=== PATIENT | male | born 1950 | race African-American/Black ===

== ENCOUNTER 2018-04-22 13:04 | Inpatient (IN) | payer BC ==
[2018-04-22] MEDS ORDERED: diphenhydrAMINE 50 MG/ML VIAL ONE (13:51)
[2018-04-22] MEDS ORDERED: Metoclopramide HCl 10 MG/2 ML VIAL ONE (13:51)
[2018-04-22] MEDS ORDERED: Ondansetron PF 4 MG/2 ML Vial IVP PRN (17:28)
[2018-04-22] MEDS ORDERED: Milk Of Magnesia 30 ML UDCUP PO PRN (17:28)
[2018-04-22] MEDS ORDERED: Mag-Al 1200 mg/1200 mg/30 ML UDCUP PO PRN (17:28)
[2018-04-22] MEDS ORDERED: Acetaminophen/Codeine 30-300mg Tablet PO PRN (17:34)
[2018-04-22] MEDS: Acetaminophen 325 MG TAB PO PRN (21:18)
[2018-04-22] MEDS: Sodium Chloride 0.9% 1,000 ML IV SCH (21:18)
--- NOTE | 2018-04-23 01:31 | HP ---
HISTORY OF PRESENT ILLNESS: Mr. Riley is a 67-year-old male who reports to our emergency department due to a change in his CT scan. The patient was having a followup CT of the head for a followup with our neurosurgeon tomorrow. Mr. Riley is known to our Neurosurgery group. He was last seen approximately two weeks ago at [facility] for a chronic subdural hematoma, which at that time the patient and his refused surgery. The patient was getting his followup CT and due to the size, he was sent over to the [facility]. We are seeing him in the ED. The patient is a poor historian, does not recall if he fell. The patient is moving all four extremities, the left side is much more weak due to a previous stroke. Currently, the patient does not have any complaints and he was sleeping; however, fold and wrapped up in many blankets. REVIEW OF SYSTEMS: Review of systems is negative other than stated in the above HPI. PAST MEDICAL HISTORY: Anemia, history of aspiration pneumonia, bilateral hydronephrosis, chronic systolic congestive heart failure, GERD, hyperlipidemia, hypertension, seasonal allergies, seizures following cerebrovascular accident and stroke. PAST SURGICAL HISTORY: Knee arthroscopy. SOCIAL HISTORY: The patient is a former smoker. He lives at home with his . He drinks daily. Since his last hospital stay at [facility], he has been in a rehab facility. MEDICATIONS: 1. Aspirin. 2. Potassium. 3. Atorvastatin. 4. Carvedilol. 5. Levetiracetam. 6. Terazosin. 7. Fluoxetine. PHYSICAL EXAMINATION: CONSTITUTIONAL: The patient is healthy. He is afebrile, normotensive. He does not appear to be distressed. He is arousable and moving all four extremities. HEENT: Head is normocephalic, atraumatic. Pupils are equal, round, reactive to light. Extraocular movements are intact. Hearing is intact. Moist mucous membranes. RESPIRATORY: Normal work of breathing on room air. Symmetrical chest rise. CARDIO: Regular rate and rhythm. EXTREMITIES: The patient is moving all four extremities. Right side is significantly stronger than the left. The left has been rehabbed following stroke. The right side, 5/5 strength and tuna purse seiner strength in deltoid, biceps, and triceps. Dorsiflexion, plantar flexion on the right. The patient has very little motion in left lower extremity, but 4/5 strength in the left upper extremity with tuna purse seiner strength and flexion, extension of the elbow. NEUROLOGIC: The patient is awake and alert once aroused. He does want to rest and closes his eyes frequently. GCS of 15. He obeys commands. Cranial nerves 2 through 12 are intact. Mild left-sided facial droop. Speech is spontaneous, slurred, but comprehensible. IMAGING: CT of the brain, there is a large bilateral subdural hematoma with significant mass effect on the underlying cerebral hemisphere, the largest is on the right, mixed density consisting an acute on chronic hemorrhage. There is [id number]-pf-[id number] midline shift with approximately 8 mm more chronic appearing left subdural hematoma measuring . ASSESSMENT AND PLAN: Mr. Riley is a 67-year-old male with a chronic subdural, worse on the right hygroma, on the left is chronic as well. We have offered janeth hole and washout on subdural. We will admit him to the hospital and make him n.p.o. after midnight. We will take him to surgery in the morning. Job ID: [id number]
--- NOTE | 2018-04-23 07:57 | PRG ---
DATE OF SERVICE: 04/23/2018 NEUROSURGERY PROGRESS NOTE I saw Jose G Riley in the Stroke Unit this morning. He is admitted yesterday with increase in size of the subdural hemorrhage. We met Mr. Riley at the [facility] in March, when he was admitted there with the same subdural hemorrhage. It has increased in size in the interval. He is more off balance. He has less energy and he has more headache than he had before. He has not had any seizure activity, but he takes antiepileptic medication at home. Examination this morning, Mr. Riley is awake. He answers questions quite slowly. He is moving well. He has some residual hemiparesis from the stroke, but he does not feel steady enough to get out of bed and show me how he walks. The right-sided subdural hematoma is larger than it was at the [facility]. There is a left-sided fluid collection as well, hygroma versus hematoma. I took a long time discussing the situation with Jose G and his at the previous hospitalization, they were rather sure that they did not want surgical intervention even though it was recommended. They now returned with worsening neurological function and an increase in the size of subdural hemorrhage. This is expected. I discussed janeth hole evacuation of subdural hemorrhage. I discussed the indications, risks, benefits, alternatives to surgery as well as the expected results. The risks discussed included, but were not limited to, bleeding, infection, damage to the brain, seizure, stroke, paralysis, increased hemorrhage , need for future surgery, and cardiopulmonary complications of anesthesia including . Mr. Riley and his understand the risks and want to proceed today. We will make arrangements for that to happen. Job ID: [id number] [facility]
[2018-04-23] MEDS: Pantoprazole 40 MG VIAL IVP SCH (09:01)
[2018-04-23] MEDS: Acetaminophen/Codeine 30-300mg Tablet PO PRN (09:01)
[2018-04-23 12:13] LABS: Anion Gap 12 mmol/L (10-20); BUN (Urea Nitrogen) 12 mg/dL (8.4-25.7); Calc. Creatinine Clearance 86 mL/min (70-130); Carbon Dioxide 22 mmol/L (23-31); Chloride 104 mmol/L (98-107); Estimated GFR-MDRD Greater than 90; Glucose 99 mg/dL (80-115); Potassium 4.2 mmol/L (3.5-5.1); Sodium 134 mmol/L (136-145)
[2018-04-23 12:16] LABS: #Basophils 0.1 thou/uL (0.0-0.2); #Eosinphils 0.1 thou/uL (0.0-0.7); #Lymphocytes 1.9 thou/uL (1.20-3.40); #Neutrophils 5.9 thou/uL (1.40-6.50); %Basophils 0.8 % (0.0-1.0); %Monocytes 10.9 % (0.0-10.0); %Neutrophils 66.3 % (42.0-75.0); Hemoglobin 11.3 g/dL (14.0-18.0); Mean Corpuscular Hemoglobin 36.4 pg (27.0-31.0); Mean Platelet Volume 6.6 fL (7.4-10.4); Platelet Count 415 thou/uL (130-400); RBC Distribution Width 10.6 % (11.5-14.5); White Blood Cell (WBC) Count 8.8 thou/uL (4.8-10.8)
[2018-04-23] MEDS ORDERED: CEFAZOLIN 2 GM/50 ML BAG ONE (12:17)
[2018-04-23] MEDS ORDERED: Lidocaine 0.5%/Epinephrine 1:200,000 50 ml Vial ONE (12:22)
[2018-04-23] MEDS ORDERED: Thrombin 5000 UNITS/5 ML VIAL ONE (12:23)
[2018-04-23] MEDS ORDERED: Sodium Chloride 0.9% 0 ML ONE (12:23)
[2018-04-23] MEDS ORDERED: Bacitracin Zinc Ointment 30 gm TUBE ONE (12:23)
[2018-04-23 12:43] LABS: MDiff Complete? YES; Macrocytosis SLIGHT = 6-15 cells (100X) (0-5/hpf); Platelet Morphology Comment Appears Increased; Polychromasia SLIGHT = 2-3 cells (100X) (0-2/hpf)
[2018-04-23] MEDS ORDERED: Fentanyl 250 MCG/5 ML VIAL ONE (13:00)
[2018-04-23] MEDS ORDERED: Phenylephrine HCL 10 MG/ML VIAL ONE (13:54)
[2018-04-23] MEDS ORDERED: Sodium Chloride 0.9% 10 ML ONE ×3 (14:58→14:59)
[2018-04-23] MEDS ORDERED: diphenhydrAMINE 50 MG/ML VIAL IVP PRN (15:39)
[2018-04-23] MEDS ORDERED: Morphine 2 MG/ML SYRINGE SLOW IVP PRN (15:39)
[2018-04-23] MEDS ORDERED: Promethazine 25 MG TAB PO PRN (15:39)
[2018-04-23] MEDS ORDERED: Mag-Al 1200 mg/1200 mg/30 ML UDCUP PO PRN (15:39)
[2018-04-23] MEDS ORDERED: Labetalol HCl 100 MG/20 ML VIAL SLOW IVP PRN ×2 (15:39→15:58)
[2018-04-23] MEDS ORDERED: hydrALAZINE 20 MG/ML VIAL SLOW IVP PRN (15:39)
[2018-04-23] MEDS ORDERED: Morphine 4 MG/ML VIAL SLOW IVP PRN (15:39)
[2018-04-23] MEDS ORDERED: Docusate 100 MG CAP PO PRN (15:39)
[2018-04-23] MEDS ORDERED: Promethazine HCl 25 MG/ML VIAL IM PRN (15:39)
[2018-04-23] MEDS ORDERED: CEFAZOLIN/Water 2 GM/20 ML SYRINGE SLOW IVP SCH (15:45)
--- NOTE | 2018-04-23 17:09 | EKG ---
Test Reason : PREOP Blood Pressure : / mmHG Vent. Rate : 076 BPM Atrial Rate : 076 BPM P-R Int : 130 ms QRS Dur : 076 ms QT Int : 356 ms P-R-T Axes : 057 -21 037 degrees QTc Int : 400 ms Normal sinus rhythm Normal ECG Confirmed by VICTOR M PIERSON, DR. Mahoney ([id number]) on 04/23/2018 5:09:12 PM Referred By: NICHOLE Confirmed By:DR. Maru DOW MD
[2018-04-23] MEDS: Sodium Chloride 0.9% 1,000 ML IV SCH ×2 (17:22→23:12)
[2018-04-23] MEDS ORDERED: Lidocaine 1% PF 5 ML VIAL ONE (17:26)
[2018-04-23] MEDS ORDERED: Glycopyrrolate 0.2 MG/ML 5 ML SYRINGE ONE (17:26)
[2018-04-23] MEDS ORDERED: ePHEDrine 50 MG/ML VIAL ONE (17:26)
[2018-04-23] MEDS ORDERED: PHENYLEPHRINE-NS 100 MCG/ML 10 ML SYRINGE ONE (17:26)
[2018-04-23] MEDS ORDERED: PROPOFOL 200 MG/20 ML VIAL ONE (17:26)
[2018-04-23] MEDS ORDERED: Rocuronium Bromide 10 MG/ML (10ML VIAL) ONE (17:26)
[2018-04-23] MEDS: hydrALAZINE 20 MG/ML VIAL SLOW IVP PRN ×3 (17:30→18:41)
--- NOTE | 2018-04-23 17:40 | OP ---
DATE OF PROCEDURE: 04/23/2018 [employer]ENT: Jaclyn Schneider PA-C. PREOPERATIVE INDICATION: Prevent neurological deterioration. PREOPERATIVE DIAGNOSIS: Chronic subdural hematomas with mass effect and midline shift, larger on the right, smaller on the left. POSTOPERATIVE DIAGNOSIS: Chronic subdural hematomas with mass effect and midline shift, larger on the right, smaller on the left. PROCEDURE PERFORMED: Bilateral janeth hole evacuation of subdural hematoma and placement of subdural drain. PREOPERATIVE MEDICATION: Ancef 2 g IV. DRAINS NUMBER: 2. DRAIN TYPE: Subdural. DESCRIPTION OF PROCEDURE: The patient was brought to the operating room. General endotracheal anesthesia was induced. The head was positioned in a gel-filled donut shaped headrest and hair was removed bilaterally over the scalp. We planned our parietal and frontal incisions on both sides and infused local anesthetic under the planned incisions. The scalp was sterilely prepped and draped. We opened first on the right side, opening the frontal and parietal incisions. We placed self-retaining retractors. With the high-speed drill and a perforating bit, we placed janeth holes of the frontal bone and parietal bone and waxed the edges of the janeth holes. We coagulated the dura. We opened the parietal and the frontal dura and thick chronic subdural hematoma easily evacuated through the posterior janeth hole. We irrigated copiously with bacitracin irrigation until all the irrigant ran clear. We brought a 10-Ukrainian red rubber catheter into the field. We cut extra sideholes in it and placed it through the posterior janeth hole into the subdural space. It was tunneled inferiorly through a separate stab incision and distal end connected to a lumbar drain bag. We placed Gelfoam with the posterior janeth hole and closed the parietal incision. We then filled the subdural space with irrigant by tilting the head to the left. There is much irrigant ran into the subdural space as possible and then we placed a pledget of Gelfoam and closed that incision as well. We placed a pursestring suture around the exit point of the drain. We used leona to close the incisions and turned our attention to the left subdural. In a similar fashion, we opened the frontal and parietal incisions. Self-retaining retractors were placed and then we created janeth holes. We waxed the bone edges and then coagulated the dura. We opened the dura in a cruciate fashion, coagulating it back and on the left side, the evacuating fluid was mostly blood with yellow tinge indicating some remote hemorrhage. A small amount of red colored fluid emanated, but most of it was straw in color. Another red rubber catheter was brought into the field and we cut extra sideholes in it. We placed it in subdural space through the parietal janeth hole. We closed that incision and then filled the remainder of the subdural space up to the frontal janeth hole by tilting the head to the right. We closed that janeth hole as well with a pledget of Gelfoam over the opening. We used leona to close the skin. The exit point of the red rubber catheter was previously tunneled under the skin through a separate stab incision and that exit point reinforced with a pursestring suture. The distal end was connected to a lumbar drain bag. Irrigant was already collected in both bags before sterile dressing was applied. The dressing was applied and the patient was moved to transfer cart. This was a clean case, no contamination. Job ID: [id number]
[2018-04-23] MEDS: Famotidine/PF 20 mg/2ml Vial SLOW IVP SCH (20:52)
[2018-04-23] MEDS: CEFAZOLIN 2 GM/50 ML-DEXTROSE 2 GM in Premix Bag 1 BAG IVPB SCH (20:52)
[2018-04-24] MEDS: CEFAZOLIN 2 GM/50 ML-DEXTROSE 2 GM in Premix Bag 1 BAG IVPB SCH ×3 (04:37→20:46)
--- NOTE | 2018-04-24 07:07 | PRG ---
DATE OF SERVICE: 04/24/2018 This is a Neurosurgery progress note. Mr. Riley is one day out from bilateral janeth hole evacuation of subdural hematoma. He has drains in place. He reports headache this morning, but no other new complaints. Maximum temperature recorded was 99.9 degrees Fahrenheit. Blood pressures have been under better control than they were in the operation with systolics in the 130s to 140s. This morning, Mr. Riley opens his eyes quickly, interacts, he answers questions and he moves all 4 extremities. I do not find any new focal deficits. The drain bags are in place and working well. CT examination of brain this morning shows good evacuation of the subdural hematomas with very little residual. There is pneumocephalus bilaterally, however. Plan for Mr. Riley today is to begin mobilization. We will leave drains in place on either side and allow him to sit and stand and move about today. We will get a repeat CT scan tomorrow. Hopefully, some of the pneumocephalus will begin receding and the drains continue to do their job in removing fluid from the subdural compartment. Job ID: [id number]
--- NOTE | 2018-04-24 08:23 | CT ---
PRELIMINARY REPORT/[facility]/EMERGENTY AFTER-HOURS PROCEDURE CT Head Without Contrast EXAM DATE/TIME: 04/24/2018 5:11 AM CLINICAL HISTORY: 67 years old, male; Pain; Headache; Post-traumatic; Prior surgery; Surgery date: Post-operative (0-2 days); Surgery type: 2 drains placed. ; Patient HX: Follow up sdh, 2 drains placed in surgery. TECHNIQUE: Axial computed tomography images of the head/brain without contrast. COMPARISON: No relevant prior studies available. FINDINGS: Brain: Moderate to large bilateral frontoparietal subdural collections, mixed attenuation on the righ t with some acute to subacute hemorrhage vs low to intermediate attenuation on the left. These measur e up to 19 mm in transverse dimension on the right and 14 on the left. Bilateral subdural drains noted with tips anteriorly. Moderate pneumocephalus. No acute stroke or parenchymal hemorrhage . Ventricles: Normal. No ventriculomegaly. Bones/joints: Bilateral janeth holes noted. Sinuses: Visualized sinuses are unremarkable. No acute sinusitis. Mastoid air cells: Visualized mastoid air cells are unremarkable. No mastoid effusion. Soft tissues: Scalp edema noted. IMPRESSION: Bilateral subdural collections post bilateral janeth holes and subdural drain placement. Pneumocephalus. No hydrocephalus or herniation. Prior not currently available. Thank you for allowing us to participate in the care of your patient. Dictated and Authenticated by: Dennis Beltran MD 04/24/2018 5:58 AM Central Time ([place] & [place]) CT HEAD NONCONTRAST: EMERGENT AFTER HOURS STUDY 04/24/2018 HISTORY: Follow up bilateral subdural hemorrhages. COMPARISON: 04/22/2018 IMPRESSION: 1. There have been interval post surgical changes, related to placement of bilateral bur holes in th e bifrontal and biparietal bones. There are subdural drainage catheters entering via the more off premise service representative iorly located bur holes, and there has been an interval decrease in bilateral subdural collections, a lthough the subdural collections do persist. There is evidence of pneumocephalus now present. Bilat eral subdural hemorrhages do persist with mixed density seen on the right. The greatest transverse d imension involving the right subdural collection is approximately 1.6 cm and and previously 2.7 cm wi th the greatest transverse dimension on the left of approximately 1.4 cm and previously 1.8 cm. 2. Interval decrease in mass effect on the cerebral hemispheres bilaterally, as well as resolution o f midline shift, although mild mass effect on each cerebral hemisphere does persist. 3. Chronic small vessel ischemic changes and cerebral volume loss. 4. Defect, right medial orbital wall, stable from prior study, which may be related to remote injury or be developmental. Findings are in agreement with preliminary report by [facility]. POS: [facility]
[2018-04-24] MEDS: Famotidine/PF 20 mg/2ml Vial SLOW IVP SCH ×2 (09:57→20:46)
[2018-04-24] MEDS: Pantoprazole 40 MG VIAL IVP SCH (09:57)
[2018-04-24] MEDS: Potassium Chloride 20 MEQ TAB PO SCH (09:57)
[2018-04-24] MEDS: FLUoxetine HCl 10 MG CAP PO SCH (11:22)
[2018-04-24] MEDS: Sodium Chloride 0.9% 1,000 ML IV SCH (13:44)
[2018-04-24] MEDS: Acetaminophen/Codeine 30-300mg Tablet PO PRN ×2 (16:17→22:02)
[2018-04-25] MEDS: Sodium Chloride 0.9% 1,000 ML IV SCH ×3 (03:09→17:43)
[2018-04-25] MEDS: CEFAZOLIN 2 GM/50 ML-DEXTROSE 2 GM in Premix Bag 1 BAG IVPB SCH ×3 (04:11→20:58)
[2018-04-25] MEDS: Acetaminophen/Codeine 30-300mg Tablet PO PRN ×4 (06:46→21:51)
[2018-04-25 08:10] LABS: #Eosinphils 0.1 thou/uL (0.0-0.7); #Lymphocytes 1.2 thou/uL (1.20-3.40); #Monocytes 1.2 thou/uL (0.11-0.59); #Neutrophils 6.1 thou/uL (1.40-6.50); %Basophils 0.4 % (0.0-1.0); %Eosinophils 0.7 % (0.0-10.0); %Lymphocytes 14.3 % (21.0-51.0); %Monocytes 14.3 % (0.0-10.0); %Neutrophils 70.3 % (42.0-75.0); Mean Corpuscular HGB CONC 33.2 g/dL (32.0-36.0); Mean Corpuscular Hemoglobin 35.8 pg (27.0-31.0); Platelet Count 361 thou/uL (130-400); RBC Distribution Width 10.6 % (11.5-14.5); Red Blood Cell (RBC) Count 3.08 mill/uL (4.70-6.10); White Blood Cell (WBC) Count 8.7 thou/uL (4.8-10.8)
[2018-04-25 08:20] LABS: Anion Gap 10 mmol/L (10-20); BUN (Urea Nitrogen) 10 mg/dL (8.4-25.7); Calc. Creatinine Clearance 181 mL/min (70-130); Calcium 9.7 mg/dL (7.8-10.44); Carbon Dioxide 25 mmol/L (23-31); Chloride 101 mmol/L (98-107); Estimated GFR-MDRD Greater than 90; Glucose 98 mg/dL (80-115); Potassium 3.6 mmol/L (3.5-5.1); Sodium 132 mmol/L (136-145)
[2018-04-25] MEDS: Potassium Chloride 20 MEQ TAB PO SCH (08:51)
[2018-04-25] MEDS: Famotidine/PF 20 mg/2ml Vial SLOW IVP SCH (08:51)
[2018-04-25] MEDS: Pantoprazole 40 MG VIAL IVP SCH (08:51)
--- NOTE | 2018-04-25 08:54 | PRG ---
DATE OF SERVICE: 04/25/2018 SUBJECTIVE: Mr. Riley is now status post bilateral frontal janeth hole evacuation of subdural hematoma. This morning, he is in the ICU, resting comfortably, sitting up, awake and interactive. He had a repeat CT examination, which shows fairly substantial degree of bilateral pneumocephalus with associated mass effect. Despite the findings on his CT scan, he appears to be asymptomatic with the exception of minor headache, which could this be a postoperative headache. He has two drains in place, both of which have had a significant output over the last 24 hours. My plan is to move him to the floor with the drains in place. We will slowly mobilize him with physical therapy. We will remove the drains once the output has diminished to a more substantial degree. Should he develop any significant symptoms as relates pneumocephalus, we can place him on high-flow oxygen. Otherwise, we will quickly move toward disposition planning as well. Job ID: [id number]
[2018-04-25] MEDS ORDERED: Potassium Chloride 20 MEQ TAB PO SCH ×2 (09:30)
[2018-04-25] MEDS ORDERED: Terazosin HCl 1 MG CAP PO SCH (09:30)
--- NOTE | 2018-04-25 09:47 | CON ---
DATE OF CONSULTATION: 04/25/2018 SERVICE: Pulmonary Medicine. REASON FOR CONSULT: ICU patient. HISTORY OF PRESENT ILLNESS: The patient is a 67-year-old male with past medical history significant for a recent presentation to [facility] for a chronic subdural hematoma. At that time, his refused surgery. As such, he presented for a routine followup CT scan in the outpatient setting. It showed evolution in the size of the subdural, and he was subsequently admitted to [facility] for evacuation of that clot. He has undergone bilateral janeth hole evacuation of subdural hematoma and placement of subdural drains. He is postop day #2 from that event. He has had no significant neurologic decline. He currently only has complaints of a headache. He is tolerating p.o. His weakness is improving a little bit. He denies any current fevers, chills, cough, sputum production, nausea, or vomiting. His appetite had been perked up quite yet. He was able to sit up on the side of the bed with physical therapy, but his core strength is extraordinarily weak, and he was not able to get out of bed into a chair. He does not have any respiratory issues and denies chest discomfort at this point. Otherwise, there has been no interval change to his condition. PAST MEDICAL HISTORY: 1. Chronic systolic heart failure. 2. Gastroesophageal reflux disease. 3. Dyslipidemia. 4. Hypertension. 5. History of seizure disorder. 6. History of CVA. 7. History of bilateral subdural hematomas, status post evacuation. 8. Seasonal allergies. 9. History of aspiration-related pneumonia. PAST SURGICAL HISTORY: 1. Knee arthroscopy. 2. Bilateral janeth hole and subdural drain placements. SOCIAL HISTORY: He has a history of smoking. He has greater than [id number] history of smoking. He drinks on a daily basis. Denies any street drugs. He has no exposure to chemicals, dust, asbestos, or tuberculosis. Up until recently, he was in [facility]. ALLERGIES: NO KNOWN DRUG ALLERGIES. MEDICATIONS: List of his inpatient medications was reviewed. No specific updates were made at this time. REVIEW OF SYSTEMS: General, head, ears, eyes, nose, throat, cardiovascular, respiratory, GI, , musculoskeletal, neurologic, and skin is negative except as mentioned in the HPI. PHYSICAL EXAMINATION: VITAL SIGNS: Afebrile, pulse 80, blood pressure 158/85, respirations 21, and saturation is 96% on room air. GENERAL: The patient is awake and alert, in no apparent distress. LUNGS: Decent air entry. There is no prolonged expiratory phase, wheezing, rhonchi, or crackles present. HEART: Normal rate. Regular. ABDOMEN: Soft, nontender, and nondistended. Bowel sounds are positive. MUSCULOSKELETAL: No cyanosis or clubbing. No pitting in the bilateral lower extremities. NEUROLOGIC: Grossly nonfocal. LABORATORY DATA: WBC 8.7, hemoglobin 11.0, platelets 361,000, and roughly stable. Neutrophil count is normal. Sodium is dropping to 132, potassium 3.6, and creatinine 0.64. IMAGING STUDIES: CT of the brain demonstrates postsurgical changes related to bilateral janeth hole and subdural drains in good position, evacuating previous hematoma. Pneumocephalus is now present, expect in the postop period. There was interval decrease in mass effect on the cerebral hemispheres bilaterally and resolution in the midline shift. ASSESSMENT: 1. Subdural hematoma, bilateral, status post bilateral janeth hole and subdural drain placements, postop day #2. 2. Benign prostatic hypertrophy. 3. History of aspiration pneumonia. DISCUSSION AND PLAN: We will look for signs of infection, which currently do not exist. Pulmonary will continue to follow along for the time being. I will replace the potassium and work on getting the Barry catheter out. I will resume the terazosin. From a purely Respiratory perspective, the patient is certainly stable for transition out of the ICU. 70 minutes have been devoted to this patient in various activities. I personally reviewed all imaging studies and laboratory data noted within this document. For fifty percent of this time, I was interacting with the patient at the bedside or coordinating care with the care team. For the remainder of the time I was immediately available to the patient in the hospital unit. Job ID: [id number] [facility]
[2018-04-25] MEDS: FLUoxetine HCl 10 MG CAP PO SCH (09:53)
--- NOTE | 2018-04-25 09:56 | CT ---
PRELIMINARY REPORT/[facility]/EMERGENCY AFTER HOURS PROCEDURE: EXAM: CT Head Without Contrast EXAM DATE/TIME: 04/25/2018 4:45 AM CLINICAL HISTORY: 67 years old, male; Condition or disease; Other: Sdh; Patient HX: F/u sdh, janeth howls TECHNIQUE: Axial computed tomography images of the head/brain without contrast. COMPARISON: CT Brain WO Con 04/24/2018 5:11 AM FINDINGS: Brain: Moderate to large bilateral frontoparietal subdural collections, mixed attenuation on the righ t with some acute to subacute hemorrhage vs low to intermediate attenuation on the left. Overall size without significant change although there has been slight decrease / breakdown of the hemorrhagic co mponent on the right. Stable mass effect upon underlying brain parenchya bilaterally. Bilateral subdu ral drains noted with tips anteriorly. Moderate pneumocephalus, slightly increased. No acute stroke o r parenchymal hemorrhage. Ventricles: No ventriculomegaly. Bones/joints: Bilateral janeth holes noted. Sinuses: Visualized sinuses are unremarkable. No acute sinusitis. Mastoid air cells: Visualized mastoid air cells are unremarkable. No mastoid effusion. Soft tissues: Scalp edema noted. IMPRESSION: 1. Bilateral subdural collections post bilateral janeth holes and subdural drain placement. Overall siz e without significant change although there has been slight decrease / breakdown of the hemorrhagic c omponent on the right. 2. Moderate pneumocephalus, slightly increased. 3. No hydrocephalus or herniation. Thank you for allowing us to participate in the care of your patient. Dictated and Authenticated by: Dennis Beltran MD 04/25/2018 5:31 AM Central Time ([place] & [place]) FINAL REPORT EMERGENCY AFTER HOURS CT BRAIN PERFORMED WITHOUT CONTRAST ENHANCEMENT: Date: 04/25/18 HISTORY: Follow-up subdural hematoma. COMPARISON: Prior day's study. FINDINGS: The fairly extensive pneumocephalus changes are fairly similar to the previous examination. The right -sided mixed density subdural collection on the right is fairly similar to the previous exam and the smaller more low attenuation subdural collection on the left is also essentially unchanged. Bilateral subdural drains are in place. IMPRESSION: Fairly stable overall examination. Moderate pneumocephalus changes and the subdural collections all a re stable. This report is in agreement with the preliminary report issued by [facility]. POS: [facility]
[2018-04-25] MEDS: traMADol HCl 50 MG TAB PO PRN ×2 (10:11→15:48)
--- NOTE | 2018-04-25 11:26 | PRG ---
DATE OF SERVICE: 04/25/2018 HISTORY: Mr. Riley is a 67-year-old man, who is now postop day 3 following bilateral subdural hematoma decompression with Dr. Mohan. He is awake, alert, and interactive. He complained of some mild headache. He does have a very significant degree of pneumocephalus on the CT scan in this morning, but no reaccumulation of hemorrhage. It essentially looked stable than yesterday. His drain output; however, has continued to be consistently high, particularly on the left side, so we will repeat them in potentially tomorrow. He could be transitioned to the floor at this point. We will add high-flow oxygen treatment to help decrease some of this pneumocephalus to see if his headache improves. We will continue to follow. Job ID: [id number]
[2018-04-25] MEDS: Carvedilol 6.25 MG TAB PO SCH (17:34)
[2018-04-25] MEDS: Famotidine 20 MG TAB PO SCH (21:51)
[2018-04-25] MEDS: Terazosin HCl 1 MG CAP PO SCH (21:51)
[2018-04-25] MEDS: Atorvastatin Calcium 20 MG TAB PO SCH (21:51)
[2018-04-26] MEDS: CEFAZOLIN 2 GM/50 ML-DEXTROSE 2 GM in Premix Bag 1 BAG IVPB SCH ×3 (04:56→20:59)
--- NOTE | 2018-04-26 08:46 | PRG ---
DATE OF SERVICE: 04/26/2018 SUBJECTIVE: Mr. Riley is postop day #4 following bilateral janeth holes with subdural drainage. His sodium is down to 132 today. We will add some dietary sodium and increase his IV saline to see if we can bump this back up. He did have some headaches yesterday, but states this morning he feels significantly better. Continues to have rather significant amount of drainage through the left TABITHA drain, now up to 520 from 300 yesterday with overnight drainage output totaling 220 mL. I will plan to leave them in for now until noon. As long as we are at 550 or less, I will discontinue drains at that time. We will continue to work with PT, OT, and Case Management for proper disposition. Job ID: [id number]
[2018-04-26] MEDS: Sodium Chloride 0.9% 1,000 ML IV SCH ×3 (09:00→22:09)
[2018-04-26] MEDS: Carvedilol 6.25 MG TAB PO SCH ×2 (09:00→17:32)
[2018-04-26] MEDS: Famotidine 20 MG TAB PO SCH ×2 (09:01→21:12)
[2018-04-26] MEDS: Sodium Chloride 1 GM TAB PO SCH ×2 (09:01→21:01)
[2018-04-26] MEDS: Pantoprazole 40 MG VIAL IVP SCH (09:01)
[2018-04-26] MEDS: Potassium Chloride 20 MEQ TAB PO SCH (09:01)
[2018-04-26] MEDS: Acetaminophen/Codeine 30-300mg Tablet PO PRN ×3 (10:27→21:12)
[2018-04-26] MEDS: FLUoxetine HCl 10 MG CAP PO SCH (11:15)
--- NOTE | 2018-04-26 15:12 | PRG ---
DATE OF SERVICE: 04/26/2018 SERVICE: Pulmonary Medicine. INTERVAL HISTORY: The patient is really doing well from a respiratory standpoint. He has persistent headache. Otherwise, he has no complaints of chest pain, nausea, vomiting, fevers, or chills. Otherwise, he is in his usual state of health. He is starting to eat a little bit of food. He does not have much appetite for the food they are bringing him however. PHYSICAL EXAMINATION: VITAL SIGNS: Afebrile, pulse 63, blood pressure 126/74, respirations 20, and saturation 99% on room air. GENERAL: The patient is awake and alert, in no apparent distress. LUNGS: Decent air entry with no prolonged expiratory phase or wheezing. HEART: Normal rate and regular. ABDOMEN: Soft, nontender, and nondistended. Bowel sounds are positive. MUSCULOSKELETAL: No cyanosis or clubbing. There is no pitting in the bilateral lower extremities. NEUROLOGIC: Grossly nonfocal. ASSESSMENT: 1. Subdural hematoma, bilateral, status post bilateral subdural drains, postop day #3. 2. Benign prostatic hypertrophy. 3. History of aspiration pneumonia. DISCUSSION AND PLAN: The patient is doing fine from a respiratory standpoint. At this point, I have no further recommendations from a pulmonary or critical care standpoint. I will sign off. Please call with additional questions or concerns through time. Job ID: [id number]
[2018-04-26] MEDS: Terazosin HCl 1 MG CAP PO SCH (21:01)
[2018-04-26] MEDS: Atorvastatin Calcium 20 MG TAB PO SCH (21:12)
[2018-04-26] MEDS: traMADol HCl 50 MG TAB PO PRN (23:25)
[2018-04-26] MEDS: diphenhydrAMINE 50 MG CAP PO PRN (23:25)
[2018-04-27] MEDS: CEFAZOLIN 2 GM/50 ML-DEXTROSE 2 GM in Premix Bag 1 BAG IVPB SCH ×3 (04:56→19:52)
[2018-04-27] MEDS: Acetaminophen/Codeine 30-300mg Tablet PO PRN ×4 (06:32→19:51)
--- NOTE | 2018-04-27 07:24 | PRG ---
DATE OF SERVICE: 04/27/2018 NEUROSURGERY PROGRESS NOTE. Mr. Riley is three days out from janeth hole evacuation of bilateral subdural hematomas. He had some postoperative pneumocephalus after surgery. He has been doing relatively well neurologically. He has not been moved around much this weekend and he did not get out of bed for more than a few seconds while they changed sheets. He sat in a chair. Has not been walked in the hallways. His drains have been left in place. Recorded vital signs do not show fever. Blood pressures have been in the 120s to 160s. Mr. Riley is already awake as I entered the room. He is conversant, takes a few seconds to respond to questions, but he does so appropriately. He is diffusely weak, but without any new focal deficit. 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 Mild hyponatremia noted over the weekend. We do not have up to date labs this morning. CT examinations over the weekend showed continued pneumocephalus. Brain was midline. There was not a significant amount of shift from one side to the other , but there were large subdural spaces. Ideally, the patient could be moved to the right side into the left side, up and down to get more fluid to come out of the subdural spaces. If the pneuomcephalus were under any pressure, it would escape, but it has not filled the bags and the bags were not under any tension. We will follow up CT scan this morning. If it looks reasonable, I think we will take the drains out later this morning. Between now and then, we will have him shifted from right lateral to the left lateral decubitus position to try to distribute the fluid better into the drains and drain bags. If we do not take them out, they will need to be replaced. Job ID: [id number] [facility]
[2018-04-27 07:35] LABS: Anion Gap 13 mmol/L (10-20); BUN (Urea Nitrogen) 5 mg/dL (8.4-25.7); Calc. Creatinine Clearance 193 mL/min (70-130); Calcium 9.4 mg/dL (7.8-10.44); Carbon Dioxide 19 mmol/L (23-31); Chloride 105 mmol/L (98-107); Estimated GFR-MDRD Greater than 90; Glucose 84 mg/dL (80-115); Potassium 3.6 mmol/L (3.5-5.1); Sodium 133 mmol/L (136-145)
[2018-04-27] MEDS: traMADol HCl 50 MG TAB PO PRN ×3 (08:44→18:33)
[2018-04-27] MEDS: Carvedilol 6.25 MG TAB PO SCH ×2 (08:46→16:40)
[2018-04-27] MEDS: Pantoprazole 40 MG VIAL IVP SCH (08:46)
[2018-04-27] MEDS: Famotidine 20 MG TAB PO SCH ×2 (08:46→19:52)
[2018-04-27] MEDS: Potassium Chloride 20 MEQ TAB PO SCH (08:46)
--- NOTE | 2018-04-27 09:36 | CT ---
HEAD CT WITHOUT CONTRAST: Date: 04/27/18 HISTORY: Subdural hematoma and pneumocephalus. Follow-up. COMPARISON: 04/25/18. FINDINGS: Stable postoperative changes involving the scalp, as well as the calvarium. There are extra-axial jamey inage catheters terminating in the left and right intracranial fossa and middle cranial fossa, respec tively. There is evidence of significant air, hemorrhage, and fluid in both extra-axial spaces. There is an abnormal configuration of both frontal lobes suggesting significant tension. 4.0 mm of right t o left subfalcine herniation. Cortical jin-white matter differentiation appears preserved. Ventricul ar system is decompressed. IMPRESSION: Extensive pneumocephalus. The change in configuration of both frontal lobes does suggest a tension pn eumocephalus. There are drainage tubes present in the left and right subdural space. There is persist ent fluid and hemorrhage. When compared to the previous examination, findings are stable. POS: [facility]
[2018-04-27] MEDS: Sodium Chloride 1 GM TAB PO SCH ×2 (10:02→21:06)
[2018-04-27] MEDS: FLUoxetine HCl 10 MG CAP PO SCH (10:02)
[2018-04-27] MEDS: Sodium Chloride 0.9% 1,000 ML IV SCH ×2 (11:09→20:47)
[2018-04-27] MEDS: hydrALAZINE 20 MG/ML VIAL SLOW IVP PRN ×2 (16:38→18:40)
[2018-04-27] MEDS: Terazosin HCl 1 MG CAP PO SCH (19:52)
[2018-04-27] MEDS: Atorvastatin Calcium 20 MG TAB PO SCH (19:52)
[2018-04-28] MEDS: CEFAZOLIN 2 GM/50 ML-DEXTROSE 2 GM in Premix Bag 1 BAG IVPB SCH ×3 (03:11→19:20)
[2018-04-28] MEDS: Acetaminophen/Codeine 30-300mg Tablet PO PRN ×2 (03:39→15:03)
--- NOTE | 2018-04-28 07:09 | PRG ---
DATE OF SERVICE: 04/28/2018 SUBJECTIVE: I saw Mr. Riley in his hospital room this morning. He is four days out from janeth hole evacuation of his bilateral subdural hematomas. Drains were removed yesterday. No other events were recorded. OBJECTIVE: The electronic chart does not reveal any fevers recorded in the vital signs. Blood pressures ranged in the 140s to 160s. Neurological examination is stable this morning. LABORATORY DATA: Sodium yesterday was 133. Yesterday's CT scan showed stability from prior scan with no extra pneumocephalus. ASSESSMENT AND PLAN: Plan for Mr. Riley now is to look at inpatient rehabilitation. I do not think he is quite safe enough to go home. If arrangements can be made for him to transfer today, that can be done. Job ID: [id number]
[2018-04-28] MEDS: Potassium Chloride 20 MEQ TAB PO SCH (09:06)
[2018-04-28] MEDS: Famotidine 20 MG TAB PO SCH ×2 (09:06→20:16)
[2018-04-28] MEDS: FLUoxetine HCl 10 MG CAP PO SCH (09:06)
[2018-04-28] MEDS: Carvedilol 6.25 MG TAB PO SCH ×2 (09:06→17:33)
[2018-04-28] MEDS: Sodium Chloride 0.9% 1,000 ML IV SCH ×2 (09:11→18:10)
[2018-04-28] MEDS: Sodium Chloride 1 GM TAB PO SCH ×2 (09:11→20:18)
[2018-04-28] MEDS: Acetaminophen 325 MG TAB PO PRN (15:01)
[2018-04-28] MEDS: Atorvastatin Calcium 20 MG TAB PO SCH (20:16)
[2018-04-28] MEDS: Terazosin HCl 1 MG CAP PO SCH (20:18)
[2018-04-29] MEDS: Acetaminophen/Codeine 30-300mg Tablet PO PRN ×5 (00:07→19:12)
[2018-04-29] MEDS: CEFAZOLIN 2 GM/50 ML-DEXTROSE 2 GM in Premix Bag 1 BAG IVPB SCH ×3 (03:09→19:18)
[2018-04-29] MEDS: Sodium Chloride 0.9% 1,000 ML IV SCH ×2 (05:09→15:36)
[2018-04-29] MEDS: Docusate 100 MG CAP PO PRN (05:16)
--- NOTE | 2018-04-29 08:47 | PRG ---
DATE OF SERVICE: 04/29/2018 I saw Mr. Riley, who is now 5 days out from janeth hole evacuation of subdural hematoma. He says he felt stronger yesterday, got out of bed and walked in the hallway with assistance. He is ready for inpatient rehabilitation. Drains were removed 2 days ago. Recorded vitals are stable. He is slowly improving. Today, stop the IV fluids. Change Keppra to p.o. dosing and transfer to inpatient rehabilitation. Job ID: [id number] [facility]
[2018-04-29] MEDS: FLUoxetine HCl 10 MG CAP PO SCH (09:17)
[2018-04-29] MEDS: Sodium Chloride 1 GM TAB PO SCH ×2 (09:17→19:58)
[2018-04-29] MEDS: Carvedilol 6.25 MG TAB PO SCH ×2 (09:18→16:12)
[2018-04-29] MEDS: Famotidine 20 MG TAB PO SCH ×2 (09:18→19:58)
[2018-04-29] MEDS: Potassium Chloride 20 MEQ TAB PO SCH (09:18)
[2018-04-29] MEDS: levETIRAcetam 500 MG TAB PO SCH ×7 (12:16→19:58)
[2018-04-29] MEDS: hydrALAZINE 20 MG/ML VIAL SLOW IVP PRN (16:12)
[2018-04-29] MEDS: Terazosin HCl 1 MG CAP PO SCH (19:58)
[2018-04-29] MEDS: Atorvastatin Calcium 20 MG TAB PO SCH (19:58)
[2018-04-29] MEDS: diphenhydrAMINE 50 MG CAP PO PRN (21:05)
[2018-04-29] MEDS: traMADol HCl 50 MG TAB PO PRN (21:05)
[2018-04-30] MEDS: Sodium Chloride 0.9% 1,000 ML IV SCH ×2 (04:33→15:13)
[2018-04-30] MEDS: CEFAZOLIN 2 GM/50 ML-DEXTROSE 2 GM in Premix Bag 1 BAG IVPB SCH ×3 (04:34→20:32)
[2018-04-30] MEDS: Acetaminophen/Codeine 30-300mg Tablet PO PRN ×3 (04:35→18:19)
--- NOTE | 2018-04-30 07:19 | PRG ---
DATE OF SERVICE: 04/30/2018 This is a neurosurgery progress note. I saw Jose G Riley in his hospital room this morning. He is 1 week out from janeth hole evacuation of subdural hematomas. Mr. Riley' did not recall Physical Therapy visiting him yesterday. He is anxious to leave the hospital. Overnight, I do not see any fevers recorded on our electronic chart. His neurological examination continues to improve. Our plan today is to move to inpatient rehabilitation. Job ID: [id number]
[2018-04-30] MEDS: Carvedilol 6.25 MG TAB PO SCH ×2 (09:42→17:05)
[2018-04-30] MEDS: Sodium Chloride 1 GM TAB PO SCH ×2 (09:42→20:32)
[2018-04-30] MEDS: Famotidine 20 MG TAB PO SCH ×2 (09:43→20:32)
[2018-04-30] MEDS: Potassium Chloride 20 MEQ TAB PO SCH (09:43)
[2018-04-30] MEDS: levETIRAcetam 500 MG TAB PO SCH ×2 (09:43→20:32)
[2018-04-30] MEDS: FLUoxetine HCl 10 MG CAP PO SCH (09:43)
--- NOTE | 2018-04-30 11:20 | PQF ---
I have been asked to alter my documentation on this case, for billing and coding purposes. This note has no clinical value to the patient. To review, for the coders, this patient was admitted with neurological decline due to enlarging subdural hematomas on both sides of the brain. [place] holes were created to wash out the clots and alleviate what proved, in the OR, to be SDH under pressure. Since evacuation, there has been improved neurological function. He is ready for transfer to inpatient rehab. All of this has been documented previously. SHARON
[2018-04-30] MEDS: Terazosin HCl 1 MG CAP PO SCH (20:32)
[2018-04-30] MEDS: Atorvastatin Calcium 20 MG TAB PO SCH (20:32)
[2018-05-01] MEDS: Sodium Chloride 0.9% 1,000 ML IV SCH ×2 (01:29→15:03)
[2018-05-01] MEDS: Acetaminophen/Codeine 30-300mg Tablet PO PRN ×5 (01:29→22:09)
[2018-05-01] MEDS: CEFAZOLIN 2 GM/50 ML-DEXTROSE 2 GM in Premix Bag 1 BAG IVPB SCH ×3 (03:24→22:04)
--- NOTE | 2018-05-01 07:41 | PRG ---
DATE OF SERVICE: 05/01/2018 Neurosurgery progress note. I saw Mr. Riley in his hospital room. He is 8 days out from janeth hole evacuation of bilateral subdural hematomas that were under pressure and causing neurological deficit. He is recovering nicely from that operation and he is ready for a transfer to the inpatient rehabilitation, that has not been done yet. His vital signs overnight have been stable. His neurological examination is stable from yesterday. Out plan today is to move to inpatient rehab. He does not need to be in the hospital any longer. Job ID: [id number]
[2018-05-01] MEDS: Famotidine 20 MG TAB PO SCH ×2 (09:06→22:03)
[2018-05-01] MEDS: levETIRAcetam 500 MG TAB PO SCH ×2 (09:06→22:03)
[2018-05-01] MEDS: Carvedilol 6.25 MG TAB PO SCH ×2 (09:06→16:59)
[2018-05-01] MEDS: Potassium Chloride 20 MEQ TAB PO SCH (09:07)
[2018-05-01] MEDS: Sodium Chloride 1 GM TAB PO SCH ×2 (09:07→22:03)
[2018-05-01] MEDS: FLUoxetine HCl 10 MG CAP PO SCH (09:07)
[2018-05-01] MEDS: traMADol HCl 50 MG TAB PO PRN (16:01)
[2018-05-01] MEDS: Terazosin HCl 1 MG CAP PO SCH (22:03)
[2018-05-01] MEDS: Atorvastatin Calcium 20 MG TAB PO SCH (22:03)
[2018-05-02] MEDS: Sodium Chloride 0.9% 1,000 ML IV SCH ×2 (07:37→11:10)
[2018-05-02] MEDS: Potassium Chloride 20 MEQ TAB PO SCH (08:08)
[2018-05-02] MEDS: Famotidine 20 MG TAB PO SCH ×2 (08:09→20:30)
[2018-05-02] MEDS: FLUoxetine HCl 10 MG CAP PO SCH (08:09)
[2018-05-02] MEDS: Sodium Chloride 1 GM TAB PO SCH ×2 (08:09→20:34)
[2018-05-02] MEDS: Carvedilol 6.25 MG TAB PO SCH ×2 (08:09→16:47)
[2018-05-02] MEDS: levETIRAcetam 500 MG TAB PO SCH ×2 (08:09→20:29)
[2018-05-02] MEDS: Acetaminophen/Codeine 30-300mg Tablet PO PRN ×4 (08:10→20:29)
--- NOTE | 2018-05-02 09:13 | PRG ---
DATE OF SERVICE: 05/02/2018 SUBJECTIVE: Mr. Riley is 10 days out from bilateral janeth hole drainage. His neurologic status has been improving from surgery. He is working with Physical Therapy to get out of bed and walk around his room with assistance. He is much more alert and oriented, and even few days ago, the patient is opening his own plastic bottle when they seen him feeding himself. There were no events reported last night, and he is moving his extremities well. No neurologic deficits are noted. We are awaiting on inpatient rehab and he is ready to go as we are pending insurance. Once insurance approval has been made, he can be discharged. Job ID: [id number]
--- NOTE | 2018-05-02 09:52 | PRG ---
DATE OF SERVICE: 05/02/2018 I saw Mr. Riley in hospital room this morning. He has not been transferred to rehab. He is still resting and watching TV. He is more alert and interactive every day. He is more anxious to get out of the hospital. His arms and legs seem to be working well. He got out of bed yesterday with some assistance and ambulated. Once he is safe for his activities of daily living, he can go home, but until then I think inpatient rehabilitation is necessary. I would like him to move today. Job ID: [id number]
[2018-05-02] MEDS: Atorvastatin Calcium 20 MG TAB PO SCH (20:29)
[2018-05-02] MEDS: Terazosin HCl 1 MG CAP PO SCH (20:29)
[2018-05-03] MEDS: Acetaminophen/Codeine 30-300mg Tablet PO PRN ×6 (01:46→23:45)
[2018-05-03] MEDS: Sodium Chloride 0.9% 1,000 ML IV SCH ×2 (02:40→08:27)
[2018-05-03] MEDS: Famotidine 20 MG TAB PO SCH ×2 (08:20→21:38)
[2018-05-03] MEDS: Potassium Chloride 20 MEQ TAB PO SCH (08:20)
[2018-05-03] MEDS: levETIRAcetam 500 MG TAB PO SCH ×2 (08:20→21:38)
[2018-05-03] MEDS: Sodium Chloride 1 GM TAB PO SCH ×2 (08:20→21:38)
[2018-05-03] MEDS: FLUoxetine HCl 10 MG CAP PO SCH (08:20)
[2018-05-03] MEDS: Carvedilol 6.25 MG TAB PO SCH ×2 (08:20→16:31)
--- NOTE | 2018-05-03 09:40 | PRG ---
DATE OF SERVICE: 05/03/2018 Mr. Riley in his hospital room this morning. He was sleeping and arousable. He has been working with physical therapy yesterday and walking down the halls with a walker and some without a walker. Mr. Riley is making good progress. There are no fevers reported or other events last night. Mr. Riley is ready to go to rehab and anxious to get out of the hospital. Once there is approval from his insurance, he will be discharged to rehab. Job ID: [id number]
--- NOTE | 2018-05-03 10:07 | PRG ---
DATE OF SERVICE: 05/03/2018 Mr. Riley remains in his hospital room. He has not been discharged to inpatient rehabilitation yet. His T-max is 98.5. His blood pressures have been in the 120s to 140s. Mr. Riley is more alert, more interactive than he has been over the past week. He is moving quite well and was able to walk with assistance yesterday. Mr. Riley could be discharged to inpatient rehabilitation anytime. If he is completely safe for all his normal activities of daily living , he might be able to discharge home in a few days, but I think rehabilitation is better for him. Job ID: [id number] [facility]
[2018-05-03] MEDS: traMADol HCl 50 MG TAB PO PRN (12:33)
[2018-05-03] MEDS: Atorvastatin Calcium 20 MG TAB PO SCH (21:38)
[2018-05-03] MEDS: Terazosin HCl 1 MG CAP PO SCH (21:38)
[2018-05-04] MEDS: Acetaminophen/Codeine 30-300mg Tablet PO PRN ×3 (03:34→15:37)
[2018-05-04] MEDS: Sodium Chloride 0.9% 1,000 ML IV SCH ×3 (04:40→18:04)
--- NOTE | 2018-05-04 07:02 | PRG ---
DATE OF SERVICE: 05/04/2018 Mr. Riley is still in this hospital room. Awaiting an inpatient rehabilitation bed. He has no complaints this morning other than that he has not been home recently. Overnight is stable. The T-max is 98.1 degrees Fahrenheit, blood pressures have been in 130s to 140s. Mr. Riley is neurologically stable. He wakes up. He answers a few questions. He has conversation about today's plan. He is moving both sides well. He is anxious to get to rehab to start his path to home. I am going to transfer today. Job ID: [id number] [facility]
--- NOTE | 2018-05-04 07:30 | PRG ---
DATE OF SERVICE: 05/04/2018 SUBJECTIVE: I am seeing Mr. Riley in his hospital bed. He is 11 days out from bilateral janeth holes and drainage of chronic subdural. The patient has progressed very well following surgery. He is much more alert and getting up and moving around more consistently. He has a walker in his room for assistance. The patient is very anxious about getting to home or at least out of the hospital. There were no events reported last night. T-max is 98.1, heart rate 81, respirations 18, O2 saturations 98% on room air. Blood pressure 136/81. We are pending transfer to rehab and insurance. Once he gets approval, he can be discharged. Job ID: [id number]
[2018-05-04] MEDS: Potassium Chloride 20 MEQ TAB PO SCH (08:22)
[2018-05-04] MEDS: Famotidine 20 MG TAB PO SCH (08:22)
[2018-05-04] MEDS: FLUoxetine HCl 10 MG CAP PO SCH (08:22)
[2018-05-04] MEDS: Carvedilol 6.25 MG TAB PO SCH ×2 (08:22→17:04)
[2018-05-04] MEDS: levETIRAcetam 500 MG TAB PO SCH (08:22)
[2018-05-04] MEDS: Sodium Chloride 1 GM TAB PO SCH (08:22)
[2018-05-04] MEDS: Docusate 100 MG CAP PO PRN (10:15)
[2018-05-04 11:22] VITALS: TEMP 98.1
[2018-05-04 12:05] VITALS: BMI 18.3
[2018-05-04 16:24] VITALS: BP 152/87
== END 2018-05-04 19:30 | DRG 26 ==
LOC: ERS 13:04 → SURG A 17:26 → 2SE 21:51 → CCU 04-23 15:50 → SURG A 04-25 12:03
PROVIDERS: ADMIT Neurological Surgery; ATTEND Neurological Surgery
PROC: 00C43ZZ Extirpation of Matter from Intracranial Subdural Space, Percutaneous Approach (ICD-10-PCS; principal; 2018-04-23)
DX: I62.03 Nontraumatic chronic subdural hemorrhage (principal); I69.354 Hemiplegia and hemiparesis following cerebral infarction affecting left non-dominant side; G40.802 Other epilepsy, not intractable, without status epilepticus; I50.22 Chronic systolic (congestive) heart failure; G93.89 Other specified disorders of brain; I11.0 Hypertensive heart disease with heart failure; I69.398 Other sequelae of cerebral infarction; E78.5 Hyperlipidemia, unspecified; K21.9 Gastro-esophageal reflux disease without esophagitis; Z87.891 Personal history of nicotine dependence
CPT/HCPCS: 36415; 70450; 80048; 85025; 93005; 93010; 96365; 96366; 96375; C9113; J0360; J1200; J1953; J2001; J2270; J2370; J2704; J2765; J3010; J3490; S0028

== ENCOUNTER 2018-06-15 13:35 | Outpatient (CLI) | payer BC ==
--- NOTE | 2018-06-15 14:59 | CT ---
CT OF THE HEAD: DATE: 06/15/2018. COMPARISON: 05/29/2018. HISTORY: Reevaluate subdural hematoma. TECHNIQUE: Axial CT imaging is obtained at 4.5 mm intervals from the vertex through the skull base without contr ast. FINDINGS: The subdural drainage catheter present on the prior examination on the left has been removed. Residu al left-sided subdural fluid collection is noted, primarily hypodense, measuring up to 1.2 cm transve rse dimension near the vertex, more prominent than on the 05/29/2018 exam. Hypodense subdural collecti on anterior to the inferior aspect of the left frontal lobe measures up to 1.3 cm, similar when sue red to prior imaging. There is a hemispheric right subdural collection as well with components which are hyperdense, isoden se, and hypodense. Overall, this subdural collection on the right is hypodense. Findings are consis tent with complex subdural hematoma. When compared to the 05/29/2018 examination, the volume of comple x fluid within the subdural space on the right is decreased. There is mild mass effect involving the frontal lobe bilaterally, similar when compared to prior imaging. No midline shift or mass effect. Cutaneous leona are noted associated with the scalp on the left near the vertex. Multiple bilatera l janeth holes are present. There is an old medial orbital wall fracture on the right. IMPRESSION: Bilateral complex subdural hematomas as detailed above, slightly more prominent on the left and decre ased in size on the right when compared to the prior examination. POS: [facility]
== END 2018-06-15 13:36 | disposition home or self-care (01) ==
LOC: TBSIIMAG 13:35
PROVIDERS: ATTEND Neurological Surgery
DX: S06.5X0D Traumatic subdural hemorrhage without loss of consciousness, subsequent encounter (principal)
CPT/HCPCS: 70450

== ENCOUNTER 2018-07-16 09:27 | Outpatient (CLI) | payer BC ==
--- NOTE | 2018-07-16 11:16 | CT ---
CT OF HEAD NONCONTRAST: COMPARISON: 06/15/2018. CLINICAL INDICATION: Subdural hemorrhage. Followup. FINDINGS: There is redemonstration of bilateral subdural fluid collections. Findings are fairly equivalent in volume bilaterally, although there is more interspersed relative high density of the right extraaxial collection. The thickness on the right, maximum measures 1.2 cm, and on the left 1.2 cm, stable to slightly smaller on the left comparing to prior exam and slightly increased in volume on the right co mpared to prior exam 06/15/2018. There is no significant shift of midline. Mild white matter hypoatt enuation indicating microvascular ischemic disease is present. No acute parenchymal hemorrhage. The re are multiple janeth holes of the calvarium, bilaterally. IMPRESSION: Redemonstration of bilateral subdural subacute hematomas with slight waxing and waning of volume, jose manuel aterally, as discussed above. There remains a more recent, relative hyperdense hemorrhagic component within the right subdural collection, compared to the left, as was also depicted on the preceding co mparison exam. Recommend continued imaging follow-up to confirm resolution. POS: [facility]
== END 2018-07-16 09:28 | disposition home or self-care (01) ==
LOC: BICCT 09:27
PROVIDERS: ATTEND Neurological Surgery
DX: I62.02 Nontraumatic subacute subdural hemorrhage (principal); I62.03 Nontraumatic chronic subdural hemorrhage
CPT/HCPCS: 70450

== ENCOUNTER 2018-11-10 12:40 | Outpatient (CLI) | payer BC ==
--- NOTE | 2018-11-10 13:26 | CT ---
Exam: Head CT without contrast HISTORY: Follow-up subdural hematoma COMPARISON: 07/16/2018 FINDINGS: Hemorrhage: Mixed attenuation bilateral frontal extra-axial collections. Collections appear to be sta ble in size, measuring approximately 0.8 cm. There is stable mass effect upon bilateral frontal lobes. Brain parenchyma: Cortical jin-white matter differentiation is preserved. No mass effect or midline shift. Basilar cisterns are patent.Stable white matter hypodensities due to chronic small vessel ischemic change. Ventricular system: Stable configuration the ventricular system. Calvarium: Stable janeth hole defect. Sinuses and mastoid air cells: Adequate aeration. IMPRESSION: Redemonstration of bilateral extra-axial hematomas. Currently, the hematomas haven't mixed attenuatio n suggesting acute on chronic blood. No significant midline shift. Findings conveyed to Dr. Marques daniel 11/10/2018 at 1:23 PM Code CR
== END 2018-11-10 12:41 | disposition home or self-care (01) ==
LOC: TBSIIMAG 12:40
PROVIDERS: ATTEND Neurological Surgery
DX: I62.02 Nontraumatic subacute subdural hemorrhage (principal)
CPT/HCPCS: 70450

== ENCOUNTER 2019-05-26 09:50 | Outpatient (CLI) | payer BC ==
--- NOTE | 2019-05-26 11:54 | CT ---
BRAIN CT WITHOUT IV CONTRAST: Date: 05/26/2019 HISTORY: Subdural hemorrhage follow-up. COMPARISON: 11/10/2018. FINDINGS: Brain CT without IV contrast demonstrates persistent bilateral mixed-age subdural hematomas with some low attenuation chronic changes, as well as some focal areas of high attenuation, suggesting some mi nimal acute hemorrhage. Overall, size appears to be slightly improved from the most recent 11/10/2018 study. Bilateral bur holes. No significant new process. IMPRESSION: Overall stable appearing brain CT with mixed high and low attenuation bilateral subdurals, slightly s maller than on the prior study. POS: [facility]
== END 2019-05-26 09:51 | disposition home or self-care (01) ==
LOC: TBSIIMAG 09:50
PROVIDERS: ATTEND Surgery
DX: I62.00 Nontraumatic subdural hemorrhage, unspecified (principal)
CPT/HCPCS: 70450

== ENCOUNTER 2019-09-08 08:33 | Outpatient (CLI) | payer BC ==
--- NOTE | 2019-09-08 08:49 | CT ---
Exam: Head CT without contrast HISTORY: Follow-up subdural hematoma COMPARISON: 05/26/2019 FINDINGS: Hemorrhage: Redemonstration of mixed attenuation bifrontal temporal-parietal subdural hematomas. Righ t-sided subdural hematoma measures 0.9 cm. Left-sided subdural hematoma measures 0.7 cm. Stable mild mass effect upon the left and right frontal lobes. No midline shift. Brain parenchyma: Cortical jin-white matter differentiation is preserved. No mass effect or midline shift. Basilar cisterns are patent.Stable white matter hypodensities. Ventricular system: Ventricles and sulci are patent and symmetric. Calvarium: Stable postsurgical changes involving the calvarium Sinuses and mastoid air cells: Adequate aeration. IMPRESSION: Essentially stable mixed attenuation bilateral extra-axial collections compatible with subdural hemat omas. There is been no appreciable change.
== END 2019-09-08 08:34 | disposition home or self-care (01) ==
LOC: TBSIIMAG 08:33
PROVIDERS: ATTEND Surgery
DX: I62.00 Nontraumatic subdural hemorrhage, unspecified (principal)
CPT/HCPCS: 70450

== ENCOUNTER 2020-04-19 12:29 | Outpatient (CLI) | payer BC | END 2020-04-19 12:30 | disposition home or self-care (01) | LOC: DTY/OP 12:29 | PROVIDERS: ATTEND Surgery | DX: E63.9 Nutritional deficiency, unspecified (principal) | CPT/HCPCS: 97802 ==